=== PATIENT | female | born 1970 | race Caucasian/White ===

== ENCOUNTER 2019-01-19 11:14 | Emergency (ER) | payer MEDICAID ==
[~2019-01-19] VITALS: Ht 162.6 cm; Wt 88.9 kg
[~2019-01-19 11:14] MED LIST: ACET500C5 PO; CYCL10TA7 PO; IBUP-1542 PO; NAPR-985 PO; TRAM50TA2 PO
[2019-01-19 11:15] VITALS: Ht 162.6 cm; Wt 88.9 kg
[2019-01-19] MEDS ORDERED: KETOROLAC 30 MG INJ IM STA (11:54)
--- NOTE | 2019-01-19 12:08 | ERD ---
ER Documentation Chief Complaint Chief Complaint lower back pain x 2 weeks HPI This is a 48-year-old female patient who presents emergency room with complaint of upper and lower back pain radiating into back of neck x2 weeks. 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 Patient states that she has been doing this job for several years. Denies fever, dysuria, weight loss, any other problems. Patient believes her back pain neck pain, headache is due to standing for long periods of time. Patient is ambulatory, well-appearing at time of evaluation. ROS All systems reviewed and are negative except as per history of present illness. Medications Home Meds Active Scripts Acetaminophen* (Tylophen*) 500 Mg Capsule, 2 CAP PO Q8H PRN for PAIN AND OR ELEVATED TEMP, #30 CAP Prov:YENI CHAMPION NP 01/19/19 Naproxen* (Naprosyn*) 500 Mg Tablet, 500 MG PO BID PRN for PAIN AND/OR INFLAMMATION, #30 TAB Prov:YENI CHAMPION NP 01/19/19 Cyclobenzaprine Hcl* (Cyclobenzaprine Hcl*) 10 Mg Tablet, 10 MG PO TID, #15 TAB Prov:DAVI FLORES MD 02/09/16 Ibuprofen* (Motrin*) 600 Mg Tab, 600 MG PO Q6, #20 TAB Prov:DAVI FLORES MD 02/09/16 Tramadol HCl (Tramadol HCl) 50 Mg Tablet, 50 MG PO Q4 PRN for PAIN, #20 TAB Prov:DAVI FLORES MD 02/09/16 Allergies Allergies: Coded Allergies: No Known Allergy (Unverified , 01/19/19) PMhx/Soc Medical and Surgical Hx: pt denies Medical Hx Hx Alcohol Use: No Hx Substance Use: No Hx Tobacco Use: No Smoking Status: Never smoker FmHx Family History: No diabetes, No coronary disease, No other Physical Exam Vitals Vital Signs Date Temp Pulse Resp B/P (MAP) Pulse Ox O2 O2 Flow FiO2 Time Delivery Rate 01/19/19 97.1 78 18 129/62 99 11:15 (84) Physical Exam Const: No acute distress Head: Atraumatic Eyes: Normal Conjunctiva, PERRL ENT: Normal External Ears, Nose and Mouth. Pharynx pink, moist, Neck: Full range of motion. No meningismus. no lesions or exudate no cervical spinal tenderness, tenderness to superior trapezius, no lymphadenopathy Resp: Clear to auscultation bilaterally, equal chest rise Cardio: Regular rate and rhythm, no murmurs Abd: Soft, non tender, non distended. Normal bowel sounds, no organomegaly Skin: No petechiae or rashes Back: No midline or flank tenderness, cervical spinal tenderness Const: No acute distress, no recent weight loss Neck: Full range of motion. No meningismus. Resp: Clear to auscultation bilaterally Cardio: Regular rate and rhythm, no murmurs Abd: Soft, non tender, non distended. Normal bowel sounds Skin: No petechiae or rashes Ext: No cyanosis, or edema, +cms Back Exam: Skin: No bruising or rash, no eccymosis Compartments: Soft Motor: Muscular strength 5/5 flexion and extension of bilateral hip/knee/ankle/foot, gait (symmetric, limp, antalgic, UTBW) Sensation: Intact to light touch throughout, tenderness over bilateral paraspinal muscles Bones: No midline point tenderness or step-off, no CVT Straight leg test: negative at 30 degrees Lumbar root: no deficits noted Ext: No cyanosis, or edema Neur: Awake and alert, CN II-XII intact, clear speech, steady gait, sensation intact BL Psych: Normal Mood and Affect Results 24 hrs Laboratory Tests Test 01/19/19 12:05 01/19/19 12:07 Bedside Urine pH (LAB) 5.5 Bedside Urine Protein (LAB) Negative Bedside Urine Glucose (UA) Negative Bedside Urine Ketones (LAB) Negative Bedside Urine Blood Trace-intact Bedside Urine Nitrite (LAB) Negative Bedside Urine Leukocyte Esterase (L Negative POC Beta HCG, Qualitative NEGATIVE Current Medications Medications Dose Sig/Janie Start Time Status Last (Trade) Ordered Route PRN Stop Time Admin Dose Reason Admin Ketorolac 30 mg ONCE STAT 01/19/19 DC 01/19/19 Tromethamine IM 11:54 12:11 (Toradol) 01/19/19 11:55 Procedures/MDM PROCEDURES/MDM DIAGNOSTIC IMAGING: Not indicated LAB INTERPRETATION: Negative for UTI or -Medications: Toradol Patient tolerated medication well with no adverse reactions. Patient reported improvement in pain. MDM: This is a 48-year-old female patient who presents with musculoskeletal strain due to standing for long periods of time while working in a factory. Patient is able to ambulate to treatment area without assistance. Patient is seated on the stretcher without obvious distress. There is no surface trauma. No muscle tenderness to palpation, no spasms, no step-off or deformity, no CVA tenderness to percussion, patient is able to stand erect. Normal flexion and extension with lateral bending and rotation without limitation. Heel and toe walk with good strength Straight leg raise negative for radiculopathy sensation to light touch is intact. Due to patient's presentation today there is low suspicion for malignancy, infection, fracture, PE, pyelonephritis, epidural abscess, cauda equina syndrome, herniation, AAA. Patient's musculoskeletal symptoms have stabilized while they have been evaluated in the department and are appropriate for outpatient work up. Patient is being discharged home with instructions to follow-up with primary care provider. Patient is also provided prescription for NSAID with instructions for use of heat, ice, stretching. Red flags discussed, patient verbalized understanding of signs and symptoms to return to emergency room. DISPOSITION and PLAN: RX: Naprosyn, Tylenol The patient has been discharge home to follow-up with community physician. Departure Diagnosis: Primary Impression: Lumbar strain Encounter type: initial encounter Qualified Codes: S39.012A - Strain of muscle, fascia and tendon of lower back, initial encounter Condition: Stable Patient Instructions: Back Basics: A Healthy Spine Referrals: [facility] YOU HAVE RECEIVED A MEDICAL SCREENING EXAM AND THE RESULTS INDICATE THAT YOU DO NOT HAVE A CONDITION THAT REQUIRES URGENT TREATMENT IN THE EMERGENCY DEPARTMENT. FURTHER EVALUATION AND TREATMENT OF YOUR CONDITION CAN WAIT UNTIL YOU ARE SEEN IN YOUR DOCTORS OFFICE WITHIN THE NEXT 1-2 DAYS. IT IS YOUR RESPONSIBILITY TO MAKE AN APPOINTMENT FOR FOL-UP CARE. IF YOU HAVE A PRIMARY DOCTOR --you should call your primary doctor and schedule an appointment IF YOU DO NOT HAVE A PRIMARY DOCTOR YOU CAN CALL OUR PHYSICIAN REFERRAL HOTLINE AT IF YOU CAN NOT AFFORD TO SEE A PHYSICIAN YOU CAN CHOSE FROM THE FOLLOWING [facility] [id number] [facility] [id number] [facility] [facility] [address] [facility] [address] [facility] [address] [facility]. [address] Additional Instructions: Visite a garcia dagoberto benitez para un EXAMEN.Regrese a estas instalaciones si no se mejora carlos a esperbamos o carlos a le sharmila. YENI CHAMPION NP Jan 19, 2019 12:08
[2019-01-19 12:55] VITALS: BP 124/62; PULSE 69; RESP 18
== END 2019-01-19 12:58 | disposition home or self-care (01) ==
LOC: FTE 11:14
DX: S39.012A Strain of muscle, fascia and tendon of lower back, initial encounter (principal); X50.1XXA Overexertion from prolonged static or awkward postures, initial encounter; Y92.63 Factory as the place of occurrence of the external cause
CPT/HCPCS: 81003; 81025; 96372; J1885; Z7502